=== PATIENT | female | born 1995 | race Caucasian/White ===

== ENCOUNTER 2017-07-21 23:29 | Emergency (ER) | payer MEDICAID, OTHER ==
[2017-07-22] MEDS ORDERED: HYDROCODONE/ACETAMINOPHEN 5-325 MG TABLET PO ONE (00:13)
[2017-07-22] MEDS ORDERED: ONDANSETRON 4 MG TAB.RAPDIS PO ONE (00:15)
--- NOTE | 2017-07-22 00:38 | ER Document Report ---
ED GI/ - General Chief Complaint: Urinary Problem Stated Complaint: UTI SYMPTOMS Time Seen by Provider: 07/22/17 00:04 Notes: Patient is a 22-year-old female comes emergency department for chief complaint of dysuria and pain in her pelvic area. She states she was diagnosed with chlamydia, given both azithromycin and doxycycline, she states that symptoms have not changed. She states she does have a history of ureteral reflux and has frequent urinary tract infections, has been evaluated by urology but does not currently follow with them. She denies vomiting, fever, rash, she denies different discharge than usual, her main symptom is the dysuria. She states her significant other was also treated for chlamydia. She was taking Azo at home. TRAVEL OUTSIDE OF THE [place] IN LAST 30 DAYS: No - Related Data Allergies/Adverse Reactions: amoxicillin [Amoxicillin] Allergy (Severe, Verified 05/25/16 01:40) Anaphylaxis Penicillins Allergy (Severe, Verified 05/25/16 01:40) Anaphylaxis Past Medical History - General Information source: Patient - Social History Smoking Status: Never Smoker Frequency of alcohol use: Occasional Drug Abuse: None Lives with: Family Family History: Arthritis, CAD, Hyperlipidemia, Hypertension, Malignancy Patient has suicidal ideation: No Patient has homicidal ideation: No - Past Medical History Cardiac Medical History: Reports: Hx Hypertension Pulmonary Medical History: Reports: Hx Bronchitis Renal/ Medical History: Denies: Hx Peritoneal Dialysis Musculoskeltal Medical History: Reports Hx Musculoskeletal Deformity, Reports Hx Musculoskeletal Trauma Surgical Hx: Negative - Immunizations Hx Diphtheria, Pertussis, Tetanus Vaccination: Yes - 02/21/15 Review of Systems - Review of Systems Constitutional: No symptoms reported EENT: No symptoms reported Cardiovascular: No symptoms reported Respiratory: No symptoms reported Gastrointestinal: See HPI Genitourinary: See HPI Female Genitourinary: See HPI Musculoskeletal: No symptoms reported Skin: No symptoms reported Hematologic/Lymphatic: No symptoms reported Neurological/Psychological: No symptoms reported Physical Exam - Vital signs Vitals: Temp Pulse Resp BP Pulse Ox 97.9 F 61 14 117/74 95 07/21/17 23:44 07/21/17 23:44 07/21/17 23:44 07/21/17 23:44 07/21/17 23:44 Interpretation: Normal - General General appearance: Appears well, Alert In distress: Mild - Patient is mildly uncomfortable and shifts around a lot - HEENT Head: Normocephalic, Atraumatic Eyes: Normal Pupils: PERRL - Respiratory Respiratory status: No respiratory distress Chest status: Nontender Breath sounds: Normal Chest palpation: Normal - Cardiovascular Rhythm: Regular. No: Tachycardia Heart sounds: Normal auscultation, S1 appreciated, S2 appreciated Murmur: No - Abdominal Inspection: Normal Distension: No distension Bowel sounds: Normal Tenderness: Tender - There is tenderness mainly in the suprapubic area, otherwise abdomen is unremarkable, no guarding, no rigidity. No: Guarding Organomegaly: No organomegaly - Genitourinary External exam: Normal Speculum exam: Cervix closed. No: Vaginal discharge Vaginal bleeding: None Bimanuel exam: Normal - Back Back: Normal, Nontender. No: Tender, CVA tenderness - Extremities General upper extremity: Normal inspection, Nontender, Normal color, Normal ROM , Normal temperature General lower extremity: Normal inspection, Nontender, Normal color, Normal ROM , Normal temperature, Normal weight bearing. No: Blaise's sign - Neurological Neuro grossly intact: Yes Cognition: Normal Orientation: AAOx4 Vivian Coma Scale Eye Opening: Spontaneous Vivian Coma Scale Verbal: Oriented Vivian Coma Scale Motor: Obeys Commands [place] Coma Scale Total: 15 Speech: Normal Motor strength normal: LUE, RUE, LLE, RLE Sensory: Normal - Psychological Associated symptoms: Normal affect, Normal mood - Skin Skin Temperature: Warm Skin Moisture: Dry Skin Color: Normal Course - Re-evaluation Re-evalutation: Patient with lower abdominal tenderness on exam. No guarding. Pelvic exam is very unremarkable with no discharge or abnormalities on exam. Wet mount does show some bacteria but examination does not suggest bacterial vaginosis. Gonorrhea and Chlamydia are negative. Urinalysis shows significant urinary tract infection, patient has a lot of dysuria and lower abdominal pain. No CVA tenderness, fever, vomiting. Patient will be started on Levaquin, this was after discussion with patient, urine culture placed, discussed return precautions in detail. Patient states understanding and agreement. - Vital Signs Vital signs: Temp Pulse Resp BP Pulse Ox 97.7 F 64 18 128/80 H 99 07/22/17 03:25 07/22/17 03:25 07/22/17 03:25 07/22/17 03:25 07/22/17 03:25 - Laboratory Laboratory results interpreted by me: 07/22/17 00:32 Urine Protein 100 H Urine Nitrite POSITIVE H Urine Urobilinogen 4.0 H Ur Leukocyte Esterase TRACE H Urine Ascorbic Acid 40 H Discharge - Discharge Clinical Impression: Dysuria Urinary tract infection Qualifiers: Urinary tract infection type: site unspecified Hematuria presence: without hematuria Qualified Code(s): N39.0 - Urinary tract infection, site not specified Condition: Stable Disposition: HOME, SELF-CARE Additional Instructions: You have a significant urinary tract infection, however your pelvic examination and pelvic laboratory workup is unremarkable. Take Levaquin as prescribed to completion. Take [place] as directed only if needed. Follow-up with primary care. Return to emergency department for any concerning or worsening symptoms including vomiting, fever, etc. Prescriptions: Hydrocodone/Acetaminophen [[place] 5-325 mg Tablet] 1 - 2 tab PO ASDIR #8 tablet Levofloxacin [Levaquin 750 mg Tablet] 750 mg PO DAILY #5 tablet Referrals: JL REA MD [Primary Care Provider] - Follow up as needed
[2017-07-22 00:49] LABS: APPEARANCE,URINE SLIGHTLY-CLOUDY; BILIRUBIN,URINE NEGATIVE (NEGATIVE); GLUCOSE, URINE NEGATIVE (NEGATIVE); KETONES,URINE NEGATIVE (NEGATIVE); LEUKOCYTE ESTERASE,URINE TRACE (NEGATIVE); NITRITE,URINE POSITIVE (NEGATIVE); PROTEIN,URINE 100 mg/dL (NEGATIVE)
[2017-07-22 02:46] LABS: CHLAM PCR NOT DETECTED (NOT DETECT)
[2017-07-22] MEDS ORDERED: LEVOFLOXACIN 750 MG TABLET PO ONE (03:00)
[2017-07-22] MEDS ORDERED: HYDROCODONE/ACETAMINOPHEN 5-325 MG 6 TAB/DSPK PO PRN (03:01)
[2017-07-22 03:44] VITALS: BP 128/80
== END 2017-07-22 03:46 | disposition home or self-care (01) ==
LOC: ER 23:29
DX: N39.0 Urinary tract infection, site not specified (principal); R39.198 Other difficulties with micturition; R30.0 Dysuria; R10.2 Pelvic and perineal pain
CPT/HCPCS: 99283; 87086; 87210; 81025; 87088; 81001; 87186; 87491; 87591; S0119; J3490

== ENCOUNTER 2017-08-05 14:05 | Emergency (ER) | payer MEDICAID ==
[2017-08-05 14:17] VITALS: BP 104/45
--- NOTE | 2017-08-05 14:53 | ER Document Report ---
ED GI/ - General Chief Complaint: Urinary Problem Stated Complaint: PAINFUL URINATION Time Seen by Provider: 08/05/17 14:45 Mode of Arrival: Ambulatory Information source: Patient TRAVEL OUTSIDE OF THE [place] IN LAST 30 DAYS: No - HPI Patient complains to provider of: Dysuria - pt with c/o dysuria and frequency - Related Data Allergies/Adverse Reactions: amoxicillin [Amoxicillin] Allergy (Severe, Verified 08/05/17 14:16) Anaphylaxis Penicillins Allergy (Severe, Verified 08/05/17 14:16) Anaphylaxis Past Medical History - General Information source: Patient - Social History Smoking Status: Never Smoker Cigarette use (# per day): No Chew tobacco use (# tins/day): No Smoking Education Provided: No Family History: Arthritis, CAD, Hyperlipidemia, Hypertension, Malignancy - Past Medical History Cardiac Medical History: Reports: Hx Hypertension Pulmonary Medical History: Reports: Hx Bronchitis Renal/ Medical History: Denies: Hx Peritoneal Dialysis Musculoskeltal Medical History: Reports Hx Musculoskeletal Deformity, Reports Hx Musculoskeletal Trauma - Immunizations Hx Diphtheria, Pertussis, Tetanus Vaccination: Yes - 02/21/15 Review of Systems - Review of Systems Constitutional: No symptoms reported EENT: No symptoms reported Cardiovascular: No symptoms reported Respiratory: No symptoms reported Gastrointestinal: No symptoms reported Genitourinary: See HPI, Burning -: Yes All other systems reviewed and negative Physical Exam - Vital signs Vitals: Temp Pulse Resp BP Pulse Ox 98.3 F 71 14 104/45 L 100 08/05/17 14:16 08/05/17 14:16 08/05/17 14:16 08/05/17 14:16 08/05/17 14:16 - General General appearance: Appears well In distress: None - Respiratory Respiratory status: No respiratory distress Breath sounds: Normal - Cardiovascular Rhythm: Regular Heart sounds: Normal auscultation - Abdominal Inspection: Normal Tenderness: Nontender - Extremities General upper extremity: Normal inspection General lower extremity: Normal ROM Course - Vital Signs Vital signs: Temp Pulse Resp BP Pulse Ox 98.3 F 71 14 104/45 L 100 08/05/17 14:16 08/05/17 14:16 08/05/17 14:16 08/05/17 14:16 08/05/17 14:16
[2017-08-05 15:04] LABS: APPEARANCE,URINE SLIGHTLY-CLOUDY; BILIRUBIN,URINE NEGATIVE (NEGATIVE); GLUCOSE, URINE NEGATIVE (NEGATIVE); KETONES,URINE NEGATIVE (NEGATIVE); LEUKOCYTE ESTERASE,URINE TRACE (NEGATIVE); NITRITE,URINE POSITIVE (NEGATIVE); PROTEIN,URINE 100 mg/dL (NEGATIVE); URINE SPECIFIC GRAVITY 1.034
== END 2017-08-05 15:24 | disposition home or self-care (01) ==
LOC: ER 14:05
DX: N30.00 Acute cystitis without hematuria (principal); R30.0 Dysuria; I10 Essential (primary) hypertension; Z87.892 Personal history of anaphylaxis; Z88.0 Allergy status to penicillin
CPT/HCPCS: 81001; 99283

== ENCOUNTER 2017-08-11 01:31 | Emergency (ER) | payer OTHER, MEDICAID ==
[2017-08-11] MEDS ORDERED: ACETAMINOPHEN 325 MG TABLET PO ONE (02:56)
--- NOTE | 2017-08-11 02:57 | ER Document Report ---
ED GI/ - General Chief Complaint: Pain With Urination Stated Complaint: PAINFUL URINATION Time Seen by Provider: 08/11/17 02:54 Mode of Arrival: Ambulatory Information source: Patient Notes: Patient is a 22-year-old female who presents to the ER today for burning with urination 2 weeks. Patient has been seen here for this and had multiple urine cultures, mostly growing E. coli. Patient has been on Levaquin, Bactrim and then took 2 doses of Cipro last night and this morning and still has burning with urination and lower abdominal burning and pain. She denies any fevers or chills, low back pain, blood in her urine, nausea or vomiting, diarrhea. She is taking AZO tablets for the burning with urination. TRAVEL OUTSIDE OF THE [place] IN LAST 30 DAYS: No - Related Data Allergies/Adverse Reactions: amoxicillin [Amoxicillin] Allergy (Severe, Verified 08/05/17 14:16) Anaphylaxis Penicillins Allergy (Severe, Verified 08/05/17 14:16) Anaphylaxis Past Medical History - General Information source: Patient - Social History Smoking Status: Unknown if Ever Smoked Family History: Arthritis, CAD, Hyperlipidemia, Hypertension, Malignancy Patient has suicidal ideation: No Patient has homicidal ideation: No - Past Medical History Cardiac Medical History: Reports: Hx Hypertension Pulmonary Medical History: Reports: Hx Bronchitis Renal/ Medical History: Denies: Hx Peritoneal Dialysis Musculoskeltal Medical History: Reports Hx Musculoskeletal Deformity, Reports Hx Musculoskeletal Trauma - Immunizations Hx Diphtheria, Pertussis, Tetanus Vaccination: Yes - 02/21/15 Review of Systems - Review of Systems Constitutional: No symptoms reported EENT: No symptoms reported Cardiovascular: No symptoms reported Respiratory: No symptoms reported Gastrointestinal: No symptoms reported Genitourinary: See HPI Female Genitourinary: No symptoms reported Musculoskeletal: No symptoms reported Skin: No symptoms reported Hematologic/Lymphatic: No symptoms reported Neurological/Psychological: No symptoms reported Physical Exam - Vital signs Vitals: Temp Pulse Resp BP Pulse Ox 98.4 F 75 16 110/62 98 08/11/17 01:38 08/11/17 01:38 08/11/17 01:38 08/11/17 01:38 08/11/17 01:38 - Notes Notes: PHYSICAL EXAMINATION: GENERAL: Uncomfortable appearing, but Ell-appearing and in no acute distress. HEAD: Atraumatic, normocephalic. EYES: Pupils equal round and reactive to light, extraocular movements intact, sclera anicteric, conjunctiva are normal. NECK: Normal range of motion, supple without lymphadenopathy LUNGS: CTAB and equal. No wheezes rales or rhonchi. HEART: Regular rate and rhythm without murmurs ABDOMEN: Soft, suprapubic tenderness. No guarding, no rebound BACK: no vertebral tenderness, normal ROM GI/: no CVA tenderness EXTREMITIES: Normal range of motion, no pitting edema. No cyanosis. NEUROLOGICAL: Cranial nerves grossly intact. Normal sensory/motor exams. PSYCH: Normal mood, normal affect. SKIN: Warm, Dry, normal turgor, no rashes or lesions noted Course - Re-evaluation Re-evalutation: 08/11/17 03:32 Patient has positive nitrites on urinalysis. - Vital Signs Vital signs: Temp Pulse Resp BP Pulse Ox 98.4 F 75 16 110/62 98 08/11/17 01:38 08/11/17 01:38 08/11/17 01:38 08/11/17 01:38 08/11/17 01:38 - Laboratory Laboratory results interpreted by me: 08/11/17 03:00 Urine Protein 100 H Urine Glucose (UA) 50 H Urine Nitrite POSITIVE H Urine Urobilinogen 4.0 H Urine Ascorbic Acid 20 H Discharge - Discharge Clinical Impression: UTI (urinary tract infection) Qualifiers: Urinary tract infection type: acute cystitis Hematuria presence: without hematuria Qualified Code(s): N30.00 - Acute cystitis without hematuria Condition: Stable Disposition: HOME, SELF-CARE Additional Instructions: Drink plenty of fluids, your urinalysis showed that you are dehydrated today. Return immediately for any new or worsening symptoms. Follow up with primary care provider, call tomorrow to make followup appointment. Prescriptions: Nitrofurantoin/Nitrofuran Mac [Macrobid 100 mg Capsule] 1 tab PO BID #20 capsule
[2017-08-11 03:21] LABS: APPEARANCE,URINE CLEAR; BILIRUBIN,URINE NEGATIVE (NEGATIVE); GLUCOSE, URINE 50 mg/dL (NEGATIVE); KETONES,URINE NEGATIVE (NEGATIVE); LEUKOCYTE ESTERASE,URINE NEGATIVE (NEGATIVE); NITRITE,URINE POSITIVE (NEGATIVE); PROTEIN,URINE 100 mg/dL (NEGATIVE); URINE SPECIFIC GRAVITY 1.035
[2017-08-11] MEDS ORDERED: NITROFURANTOIN MONOHYD/M-CRYST 100 MG CAPSULE PO ONE (03:30)
[2017-08-11] MEDS ORDERED: HYDROCODONE/ACETAMINOPHEN 5-325 MG 6 TAB/DSPK PO PRN (03:35)
[2017-08-11 03:46] VITALS: BP 110/68
== END 2017-08-11 03:47 | disposition home or self-care (01) ==
LOC: ER 01:31
DX: N30.00 Acute cystitis without hematuria (principal); I10 Essential (primary) hypertension; Z88.0 Allergy status to penicillin
CPT/HCPCS: 99283; 87086; 81025; 81001; J8499

== ENCOUNTER 2018-01-05 17:51 | Emergency (ER) | payer MEDICAID, OTHER ==
[2018-01-05] MEDS ORDERED: IBUPROFEN 800 MG TABLET PO ONE (19:06)
--- NOTE | 2018-01-05 19:06 | ER Document Report ---
HPI - HPI Onset: Other - 4 days Onset/Duration: Persistent Quality of pain: Burning Pain Level: 2 Context: Patient presents with a four-day history of urinary frequency with dysuria. Patient denies any fever or back pain. Patient states she has a history of frequent UTIs for which she has seen numerous urologist in the past and had multiple studies. Patient states typically she is placed on either Bactrim or Cipro for her symptoms. Patient states she has been taking Bactrim for the past 4 days without improvement of her symptoms. Patient is requesting a prescription of Cipro today. Associated Symptoms: Other - Dysuria, frequency. denies: Fever Exacerbated by: Denies Relieved by: Denies Similar symptoms previously: Yes Recently seen / treated by doctor: No - ROS ROS below otherwise negative: Yes Systems Reviewed and Negative: Yes All other systems reviewed and negative - CONSTITUTIONAL Constitutional: DENIES: Fever, Chills - URINARY Urinary: REPORTS: Dysuria, Urgency, Frequency - REPRODUCTIVE Reproductive: DENIES: : - MUSCULOSKELETAL Musculoskeletal: DENIES: Back Pain - DERM Skin Color: Normal Skin Problems: None Past Medical History - General Information source: Patient - Social History Smoking Status: Never Smoker Chew tobacco use (# tins/day): No Frequency of alcohol use: Occasional Drug Abuse: [employer] Occupation: None Lives with: Family Family History: Arthritis, CAD, Hyperlipidemia, Hypertension, Malignancy Patient has suicidal ideation: No Patient has homicidal ideation: No Pulmonary Medical History: Reports: Hx Bronchitis Renal/ Medical History: Reports: Other - Frequent UTIs. Denies: Hx Peritoneal Dialysis Musculoskeltal Medical History: Reports Hx Musculoskeletal Deformity, Reports Hx Musculoskeletal Trauma Past Surgical History: Reports: Hx Breast Surgery - Immunizations Hx Diphtheria, Pertussis, Tetanus Vaccination: Yes - 02/21/15 Vertical Provider Document - CONSTITUTIONAL Agree With Documented VS: Yes Exam Limitations: No Limitations General Appearance: WD/WN, No Apparent Distress - INFECTION CONTROL TRAVEL OUTSIDE OF THE [place] IN LAST 30 DAYS: No - HEENT HEENT: Atraumatic - NECK Neck: Normal Inspection - RESPIRATORY Respiratory: Breath Sounds Normal, No Respiratory Distress - CARDIOVASCULAR Cardiovascular: Regular Rate, Regular Rhythm - BACK Back: Normal Inspection. negative: CVA Tenderness-Right, CVA Tenderness-Left - MUSCULOSKELETAL/EXTREMETIES Musculoskeletal/Extremeties: YANIQUE GUNDERSON - NEURO Level of Consciousness: Awake, Alert, Appropriate Motor/Sensory: No Motor Deficit - DERM Integumentary: Warm, Dry, No Rash Course - Re-evaluation Re-evalutation: 01/05/18 19:41 Discuss results of patient's urinalysis with patient. Patient advised that Pyridium can cause a false nitrate on that urinalysis. Patient is concerned that she does still have a UTI and would like additional treatment at this time. Urine culture will be ordered. Discussed worsening symptoms that patient should return immediately for. Patient encouraged to follow-up with her neurologist for further evaluation. No concern for pyelonephritis at this time. Patient denies any concern for STD. - Laboratory Laboratory results interpreted by me: 01/05/18 19:42 Labs- Entire Visit 01/05/18 18:11 Urine Color SUBHA Urine Appearance CLEAR Urine pH 7.0 Ur Specific [place] 1.015 Urine Protein NEGATIVE Urine Glucose (UA) NEGATIVE Urine Ketones TRACE H Urine Blood NEGATIVE Urine Nitrite POSITIVE H Urine Bilirubin NEGATIVE Urine Urobilinogen 4.0 H Ur Leukocyte Esterase NEGATIVE Urine WBC (Auto) 1 Urine RBC (Auto) 2 Squamous Epi Cells Auto 3 Urine Mucus (Auto) RARE Urine Ascorbic Acid 20 H Discharge - Discharge Clinical Impression: Urinary symptom or sign, hx frequent uti Condition: Stable Disposition: HOME, SELF-CARE Instructions: Cephalexin ([facility]), Urinary Tract Infection ([facility]) Additional Instructions: Return immediately for any new or worsening symptoms Followup with your primary care provider, call tomorrow to make a followup appointment Urine culture is pending, we will call if you need any different treatment Prescriptions: Cephalexin Monohydrate [Keflex 500 mg Capsule] 500 mg PO Q6H 5 Days capsule Naproxen [Naprosyn 250 Nmg Tablet] 1 tab PO BID #14 tablet Referrals: [facility] [Provider Group] - Follow up tomorrow
[2018-01-05 19:19] LABS: APPEARANCE,URINE CLEAR; BILIRUBIN,URINE NEGATIVE (NEGATIVE); COLOR,URINE AMBER; GLUCOSE, URINE NEGATIVE (NEGATIVE); KETONES,URINE TRACE mg/dL (NEGATIVE); LEUKOCYTE ESTERASE,URINE NEGATIVE (NEGATIVE); NITRITE,URINE POSITIVE (NEGATIVE); PROTEIN,URINE NEGATIVE (NEGATIVE); URINE SPECIFIC GRAVITY 1.015
[2018-01-05] MEDS ORDERED: CEPHALEXIN 500 MG CAPSULE PO ONE (19:41)
[2018-01-05 20:57] VITALS: BP 114/63
== END 2018-01-05 19:52 | disposition home or self-care (01) ==
LOC: ER 17:51
DX: R35.0 Frequency of micturition (principal); R30.0 Dysuria; R39.15 Urgency of urination; Z87.440 Personal history of urinary (tract) infections
CPT/HCPCS: 36415; 81001; 87086; 99283

== ENCOUNTER 2018-04-02 07:58 | Emergency (ER) | payer OTHER ==
--- NOTE | 2018-04-02 08:25 | ER Document Report ---
ED General - General Chief Complaint: Urinary Problem Stated Complaint: URINARY ISSUES Time Seen by Provider: 04/02/18 08:12 Notes: Patient is a 23-year-old female who presents to the emergency room with a chief complaint of urinary pyuria, urgency, frequency for the past 2 months. Patient states that she was initially prescribed Keflex from the emergency department which the chart shows that was in December. She states that she did not complete that course of antibiotics and went to [facility]. Patient states that she has been on Cipro for the past 10 days. She denies any fevers or chills, nausea or vomiting. Patient states that she is sexually active with her and does not use protection. She denies any vaginal discharge, vaginal pain. She admits to suprapubic tenderness. Denies any flank pain. Patient states that she does have a urologist but has not seen him in 2 years TRAVEL OUTSIDE OF THE [place] IN LAST 30 DAYS: No - Related Data Allergies/Adverse Reactions: amoxicillin [Amoxicillin] Allergy (Severe, Verified 04/02/18 08:03) Anaphylaxis Penicillins Allergy (Severe, Verified 04/02/18 08:03) Anaphylaxis Past Medical History - Social History Smoking Status: Unknown if Ever Smoked Family History: Arthritis, CAD, Hyperlipidemia, Hypertension, Malignancy Patient has suicidal ideation: No Patient has homicidal ideation: No - Past Medical History Cardiac Medical History: Reports: Hx Hypertension Pulmonary Medical History: Reports: Hx Bronchitis Renal/ Medical History: Denies: Hx Peritoneal Dialysis Musculoskeltal Medical History: Reports Hx Musculoskeletal Deformity, Reports Hx Musculoskeletal Trauma Past Surgical History: Reports: Hx Breast Surgery - Immunizations Hx Diphtheria, Pertussis, Tetanus Vaccination: Yes - 02/21/15 Review of Systems - Review of Systems Constitutional: No symptoms reported Cardiovascular: No symptoms reported Respiratory: No symptoms reported Gastrointestinal: No symptoms reported Genitourinary: See HPI Female Genitourinary: See HPI -: Yes All other systems reviewed and negative Physical Exam - Vital signs Vitals: Temp Pulse Resp BP Pulse Ox 98.2 F 76 16 104/60 99 04/02/18 08:04 04/02/18 08:04 04/02/18 08:04 04/02/18 08:04 04/02/18 08:04 - Notes Notes: PHYSICAL EXAM GENERAL: Alert, interacts well. LUNGS: Clear to auscultation bilaterally, no wheezes, rales, or rhonchi. No respiratory distress. HEART: Regular rate and rhythm. No murmurs, gallops, or rubs. ABDOMEN: Soft, nondistended, mild suprapubic tenderness. No guarding, rebound, or rigidity.. Bowel sounds present in all 4 quadrants. back: (-) CVA tend erness FEMALE : Normal external exam. No evidence of lesions, lacerations, bruising or vesicles. Speculum exam normal cervix closed. No evidence of vaginal discharge with odor. No evidence of lesions. No vaginal bleeding. Bimanual exam normal no cervical motion tenderness. No adnexal mass or adnexal tenderness. NEUROLOGICAL: Alert and oriented x4. Normal speech. PSYCH: Normal affect, normal mood. SKIN: Warm, dry, normal turgor. No rashes or lesions noted. Course - Re-evaluation Re-evalutation: 04/02/18 09:20 Patient is a 23-year-old female who is returning to the emergency department with a chief complaint UTI. Patient states she does have a history of reflux. Patient has been noncompliant with urology follow-up. Will discharge home on Bactrim. Discussed with patient to establish care with a PCM and a urologist with [facility] given that her primary insurer. Patient at this time is requesting pain medication. States that she took Tylenol without any improvement in her pain. She is requesting Vicodin and states that she habitually receives prescriptions for her discomfort. Discussed with her that narcotics are not indicated for her treatment when she is initiated on the antibiotic therapy. Discussed with her to follow-up with her PCM if she continues to have discomfort. Stable for discharge home - Vital Signs Vital signs: Temp Pulse Resp BP Pulse Ox 98.2 F 76 16 104/60 99 04/02/18 08:04 04/02/18 08:04 04/02/18 08:04 04/02/18 08:04 04/02/18 08:04 - Laboratory Laboratory results interpreted by me: 04/02/18 08:14 Urine Protein 100 H Urine Ketones TRACE H Ur Leukocyte Esterase TRACE H Urine Ascorbic Acid 40 H Discharge - Discharge Clinical Impression: UTI (urinary tract infection) Qualifiers: Urinary tract infection type: acute cystitis Hematuria presence: without hematuria Qualified Code(s): N30.00 - Acute cystitis without hematuria Condition: Good Disposition: HOME, SELF-CARE Additional Instructions: URINARY TRACT INFECTION: Your evaluation indicates that you have a urinary tract infection. This is due to germs growing in the bladder. This is a common problem. This infection usually responds quickly to antibiotics. Your antibiotic should be taken exactly as prescribed. Drink plenty of fluids -- three to four quarts a day. Occasionally, a bladder anesthetic will be prescribed to help stop the feeling of urgency until the antibiotic has a chance to clear the infection. This may cause your urine to be dark orange. Certain urine infections require a culture. If the doctor obtained a culture, the results will be back in two days. You should call to see if a change in treatment is needed. A repeat urinalysis after you finish treatment is often recommended. The physician will let you know if further testing is required. Call the doctor if you develop fever, chills, flank pain, inability to urinate, or blood in the urine. ANTIBIOTIC THERAPY: You have been given an antibiotic prescription. It's important that you take all the medication, unless instructed otherwise by your physician. Failure to complete the entire course can result in relapse of your condition. Common side effects of antibiotics include nausea, intestinal cramping, or diarrhea. Women may develop vaginal yeast infections, and babies can get yeast (thrush) in the mouth following the use of antibiotics. Contact your physician if you develop significant side effects from this medication. Allergy to this antibiotic can result in hives, wheezing, faintness, or itching. If symptoms of allergy occur, stop the medication and call the doctor. TRIMETHOPRIM-SULFA: You have been given a prescription for trimethoprim-sulfa (TMS, Septra, Bactrim). This is a combination antibiotic of the sulfa class, often used for urinary tract infections, middle ear infections, bronchitis, shigella intestinal infection, and Pneumocystis pneumonia. TMS is usually well-tolerated. Occasional side effects include nausea and decreased appetite. Septra is not recommended for infants less than two months of age. Do not take this medication if you have experienced severe side effects or allergy to sulfa medicine. You should stop this medicine at once and contact your physician if you develop any rash, joint pain, shortness of breath, bruising, or jaundice ( yellow color in the skin), or if you develop any other new or unusual symptoms. FOLLOW-UP CARE: If you have been referred to a physician for follow-up care, call the physician s office for an appointment as you were instructed or within the next two days. If you experience worsening or a significant change in your symptoms, notify the physician immediately or return to the Emergency Department at any time for re-evaluation. Prescriptions: Sulfamethoxazole/Trimethoprim [Bactrim Ds Tablet] 1 each PO BID #10 tablet Tramadol HCl 50 mg PO BID #6 tablet Referrals: [facility] [Provider Group] - Follow up in 3-5 days
[2018-04-02 08:33] LABS: APPEARANCE,URINE SLIGHTLY-CLOUDY; BILIRUBIN,URINE NEGATIVE (NEGATIVE); COLOR,URINE YELLOW; GLUCOSE, URINE NEGATIVE (NEGATIVE); KETONES,URINE TRACE mg/dL (NEGATIVE); LEUKOCYTE ESTERASE,URINE TRACE (NEGATIVE); NITRITE,URINE NEGATIVE (NEGATIVE); PROTEIN,URINE 100 mg/dL (NEGATIVE); URINE SPECIFIC GRAVITY 1.036; UROBILINOGEN,URINE NEGATIVE mg/dL (<2.0)
[2018-04-02 09:08] LABS: RBCS (WET MOUNT) NO RBCS SEEN; T.VAGINALIS (WET MOUNT) NO TRICHOMONAS SEEN; WBCS (WET MOUNT) 1+ WBCS SEEN; YEAST (WET MOUNT) NO YEAST SEEN
[2018-04-02 09:09] LABS: BACTERIA (WET MOUNT) 3+ BACTERIA SEEN
[2018-04-02] MEDS ORDERED: HYDROCODONE/ACETAMINOPHEN 5-325 MG TABLET PO ONE (09:19)
[2018-04-02] MEDS ORDERED: SULFAMETHOXAZOLE/TRIMETHOPRIM 800-160 MG TABLET PO ONE (09:19)
[2018-04-02 09:46] VITALS: BP 102/61
[2018-04-02 10:40] LABS: CHLAM PCR NOT DETECTED (NOT DETECT); GON PCR NOT DETECTED (NOT DETECT)
== END 2018-04-02 09:44 | disposition home or self-care (01) ==
LOC: ER 07:58
DX: N30.00 Acute cystitis without hematuria (principal); I10 Essential (primary) hypertension; Z87.892 Personal history of anaphylaxis; Z88.0 Allergy status to penicillin
CPT/HCPCS: 81001; 81025; 87086; 87210; 87491; 87591; 99283

== ENCOUNTER 2018-12-19 16:25 | Emergency (ER) | payer OTHER ==
[2018-12-19] MEDS ORDERED: DEXAMETHASONE SOD PHOS INJ 10 MG/1 ML VIAL IM ONE (18:40)
[2018-12-19] MEDS ORDERED: HYDROCODONE/ACETAMINOPHEN 5-325 MG TABLET PO ONE (18:41)
--- NOTE | 2018-12-19 19:57 | ER Document Report ---
HPI - HPI Time Seen by Provider: 12/19/18 18:34 Pain Level: 5 Notes: Patient is a 23-year-old female with chief complaint of right ear pain, sore throat and fever. She states her symptoms started on Tuesday. She reports history of strep throat in the past. - CONSTITUTIONAL Constitutional: REPORTS: Fever, Chills - EENT EENT: REPORTS: Sore Throat. DENIES: Ear Pain, Eye problems - NEURO Neurology: REPORTS: Headache, Weakness. DENIES: Vision blurred, Dizzinesss / Vertigo - CARDIOVASCULAR Cardiovascular: DENIES: Chest pain - RESPIRATORY Respiratory: DENIES: Trouble Breathing, Coughing - GASTROINTESTINAL Gastrointestinal: DENIES: Abdominal Pain, Black / Bloody Stools - URINARY Urinary: DENIES: Dysuria, Urgency, Frequency - REPRODUCTIVE Reproductive: DENIES: : - MUSCULOSKELETAL Musculoskeletal: DENIES: Extremity pain Past Medical History - General Information source: Patient - Social History Smoking Status: Never Smoker Frequency of alcohol use: None Drug Abuse: None Family History: Arthritis, CAD, Hyperlipidemia, Hypertension, Malignancy Patient has suicidal ideation: No Patient has homicidal ideation: No - Past Medical History Cardiac Medical History: Reports: Hx Hypertension Pulmonary Medical History: Reports: Hx Bronchitis Renal/ Medical History: Denies: Hx Peritoneal Dialysis Musculoskeletal Medical History: Reports Hx Musculoskeletal Deformity, Reports Hx Musculoskeletal Trauma Past Surgical History: Reports: Hx Breast Surgery - Immunizations Hx Diphtheria, Pertussis, Tetanus Vaccination: Yes - 02/21/15 Vertical Provider Document - CONSTITUTIONAL Notes: PHYSICAL EXAMINATION: GENERAL: Well-appearing, well-nourished and in no acute distress. HEAD: Atraumatic, normocephalic. EYES: Pupils equal round extraocular movements intact, conjunctiva are normal. ENT: Nares patent, bilateral tonsillar swelling with erythema and mild exudates, tonsils not touching, uvula midline, no evidence of peritonsillar abscess. NECK: Normal range of motion, bilateral cervical lymphadenopathy. LUNGS: No respiratory distress, lung sounds clear to auscultation bilaterally. Musculoskeletal: Normal range of motion NEUROLOGICAL: Normal speech, normal gait. PSYCH: Normal mood, normal affect. SKIN: Warm, Dry, normal turgor, no rashes or lesions noted. - INFECTION CONTROL TRAVEL OUTSIDE OF THE [place] IN LAST 30 DAYS: No Course - Re-evaluation Re-evalutation: Rapid strep negative. - Vital Signs Vital signs: Temp Pulse Resp BP Pulse Ox 98.0 F 63 15 114/88 H 100 12/19/18 16:45 12/19/18 16:45 12/19/18 16:45 12/19/18 16:45 12/19/18 16:45 Discharge - Discharge Clinical Impression: Tonsillitis Condition: Stable Disposition: HOME, SELF-CARE Additional Instructions: Tonsillitis Tonsillitis is infection of the tonsils. Symptoms include sore throat, difficulty swallowing, fever and aches, and tender lumps under the angle of the jaw. Tonsillitis can be caused by bacteria or viruses. Viral tonsillitis must get better on its own. Antibiotics don't help. The doctor may test for mononucleosis if symptoms last many days. We can only treat the symptoms. Bacterial tonsillitis is treated with antibiotics. It may take a few days before improvement occurs. It's important to take all the antibiotics. Take acetaminophen or ibuprofen for pain and fever. Sip frequent clear liquids, or use popsicles or ice chips. Anesthetic sprays or lozenges may help a little (the pain of tonsillitis is deep, and isn't helped much by numbing the surface). Make sure the air in the room is not too dry. Avoid using decongestants or antihistamines. Tonsillectomy may be necessary if you have several episodes of tonsillitis within a couple of years, or if there are complications from your tonsillitis. It's usually not needed. Call the doctor if there is no improvement in two days, or if you have difficulty breathing, increasing throat pain, high fever, rash, or frequent vomiting. He was given an injection of Decadron here in the emergency department this is a steroid which will help reduce some of the inflammation. Please take ibuprofen 600 mg every 6 hours for the next several days. Use the narcotic pain medication I have given you for severe pain only. The rapid strep was negative today, a culture will be done. The culture will result in 48-72 hours, someone will call you if the culture result is abnormal meaning there is bacteria found on it. If this occurs someone will call in a prescription to pharmacy of your choosing. Return to the ED if you develop any of the above warning symptoms such as difficulty breathing, unable to swallow or fevers uncontrolled by Tylenol or ibuprofen. Forms: Return to Work
[2018-12-19] MEDS ORDERED: HYDROCODONE/ACETAMINOPHEN 5-325 MG (6 TAB/ER DISP) PO PRN (20:01)
[2018-12-19 20:12] VITALS: BP 109/60
== END 2018-12-19 20:18 | disposition home or self-care (01) ==
LOC: ER 16:25
DX: J03.90 Acute tonsillitis, unspecified (principal); H92.01 Otalgia, right ear; R50.9 Fever, unspecified; R51 Headache; R53.1 Weakness; I10 Essential (primary) hypertension
CPT/HCPCS: 99282; 96372; 87070; 87880; J1100